=== PATIENT | female | born 1955 | race Caucasian/White ===

== ENCOUNTER 2021-01-15 12:11 | Outpatient (CLI) | payer BC ==
--- NOTE | 2021-01-17 11:41 | XRAY Report ---
PROCEDURE: Knee 3 View RT INDICATIONS: ANTERIOR KNEE PAIN TECHNIQUE: 3 views of the right knee(s) were acquired. COMPARISON: None. FINDINGS: Bones: No fractures or dislocations. No suspicious bony lesions. Soft tissues: Moderate sized suprapatellar joint effusion. No suspicious soft tissue calcifications. IMPRESSION: Moderate-sized suprapatellar effusion. No acute finding. No significant degenerative trinh nges. Reviewed by: Kt Mcfarlane MD on 01/17/2021 11:40 AM PDT Approved by: Kt Mcfarlane MD on 01/17/2021 11:40 AM PDT Station ID: [id number]
--- NOTE | 2021-01-31 08:28 | Mammography Report ---
BILATERAL DIGITAL SCREENING MAMMOGRAM 3D/2D WITH EXAGGERATED CC: 01/15/2021 CLINICAL: Routine screening. Comparison is made to exams dated: 07/06/2012 mammogram and 01/17/2009 mammogram - [facility]. There are scattered fibroglandular elements in both breasts. No significant masses, calcifications, or other findings are seen in either breast. There has been no significant interval change. IMPRESSION: NEGATIVE There is no mammographic evidence of malignancy. A 1 year screening mammogram is recommended. This exam was interpreted at Station ID: [id number]. NOTE: For mammograms, a report in lay terms will be sent to the patient. Approximately 15% of breast malignancies will not be visualized mammographically. In the management of a palpable breast mass, a negative mammogram must not discourage biopsy of a clinically suspicious lesion. Electronically Signed By: Elías Dawson M.D. ddp/penrad:01/30/2021 15:10:09 ACR BI-RADS Category 1: Negative 3341F PARENCHYMAL PATTERN: (A) - The breast(s) demonstrate(s) scattered fibroglandular densities. BI-RADS CATEGORY: (1) - 1 RECOMMENDATION: (ANNUAL) - Recommend routine annual screening mammography. [id number] 1 year screening LATERALITY: (B)
== END 2021-01-15 12:12 | disposition home or self-care (01) ==
LOC: DI.S 12:11
PROVIDERS: ATTEND Nurse Practitioner Family
DX: Z12.31 Encounter for screening mammogram for malignant neoplasm of breast (principal); M25.461 Effusion, right knee; M25.561 Pain in right knee

== ENCOUNTER 2022-09-18 15:15 | Outpatient (CLI) | payer MEDICARE, BC ==
--- NOTE | 2022-09-19 09:26 | Mammography Report ---
BILATERAL DIGITAL SCREENING MAMMOGRAM 3D/2D WITH EXAGGERATED CC: 09/18/2022 CLINICAL: Routine screening. Comparison is made to exams dated: 01/15/2021 mammogram, 07/06/2012 mammogram, and 01/17/2009 mammogr am - [facility]. There are scattered areas of fibroglandular density in both breasts (category b / 25%-50% glandular t issue). There is an asymmetry in the left breast posterior depth lateral region seen on the XCCL only. This is not included on previous study. No other significant masses, calcifications, or other findings are seen in either breast. IMPRESSION: INCOMPLETE: NEEDS ADDITIONAL IMAGING EVALUATION The asymmetry in the left breast is indeterminate. Additional views with possible ultrasound are rec ommended. Based on the Tyrer Cuzick model (a risk assessment model) the patients lifetime risk is 6.4% and her 10 year risk is 3.2%. According to the ACR, ACS, and NCCN guidelines, an annual breast MRI exam kendrick g with mammogram is recommended if the patients lifetime risk is 20% or greater. This exam was interpreted at Station ID: [id number]. NOTE: For mammograms, a report in lay terms will be sent to the patient. Approximately 15% of breast malignancies will not be visualized mammographically. In the management of a palpable breast mass, a negative mammogram must not discourage biopsy of a clinically suspicious lesion. Electronically Signed By: Boaz Ramos M.D. lc/:09/19/2022 08:54:50 ACR BI-RADS Category 0: Incomplete 3340F PARENCHYMAL PATTERN: (A) - The breast(s) demonstrate(s) scattered fibroglandular densities. BI-RADS CATEGORY: (0) - 0 Mammo and [place] [id number] Immediate follow-up LATERALITY: (B)
== END 2022-09-18 23:59 | disposition home or self-care (01) ==
LOC: DI.S 15:15
PROVIDERS: ATTEND Nurse Practitioner Family
DX: Z12.31 Encounter for screening mammogram for malignant neoplasm of breast (principal); R92.8 Other abnormal and inconclusive findings on diagnostic imaging of breast

== ENCOUNTER 2023-02-06 10:36 | Outpatient (CLI) | payer MEDICARE, BC ==
--- NOTE | 2023-02-06 16:32 | DEXA Report ---
PROCEDURE: Dexa Spine and/or Hip INDICATIONS: POST MENOPAUSAL TECHNIQUE: Dual energy x-ray absorptiometry (DXA) was performed on a [employer] System. Regions measur ed are the AP Spine, femoral neck, and if needed forearm. COMPARISON: None FINDINGS: Lumbar Spine: Bone Mineral Density 1.326g/cm/cm,T score 1.2. Left Femoral Neck: Bone Mineral Density 1.036 g/cm/cm, T score 0.0. Left Hip: Bone Mineral Density 1.044 g/cm/cm,T score 0.3. (T score greater or equal to -1.0: NORMAL) (T score from -1.1 to -2.4: OSTEOPENIA) (T score less than or equal to -2.5 to: OSTEOPOROSIS) Impression: By WHO criteria, this patient has normal bone density Patients with diagnosis of osteoporosis or osteopenia should have regular bone mineral density assess ment. For those eligible for Medicare, routine testing is allowed once every 2 years. Testing frequ ency can be increased for patients who have rapidly progressing disease or for those who are receivin g medical therapy to restore bone mass. Reviewed by: Negro Talbot MD on 02/06/2023 4:30 PM PST Approved by: Negro Talbot MD on 02/06/2023 4:30 PM PST Station ID: [id number]
== END 2023-02-06 10:37 | disposition home or self-care (01) ==
LOC: DI 10:36
PROVIDERS: ATTEND Nurse Practitioner Family
DX: Z78.0 Asymptomatic menopausal state (principal)